=== PATIENT | female | born 1990 | race Two or more races ===

== ENCOUNTER 2019-10-29 05:06 | Day surgery (SDC) | payer BC, OTHER ==
[2019-10-28 15:05] VITALS: BMI 34.0
[~2019-10-29 05:06] MED LIST: BUPIVACAINE HCL/PF 0.5% (5MG/ML) 10 ML VIAL IJ ONE; ceFAZolin SODIUM 1 GM VIAL IVPB ONE
[2019-10-29] MEDS ORDERED: IBUPROFEN 800 MG/8 ML IJ IVPB PRN (11:39)
--- NOTE | 2019-10-29 11:39 | HP ---
History & Physical Update - History History: No Change - Physical Physical: No Change - Assessment Assessment: No Change - Plan Plan: No Change (NO change in HP)
[2019-10-29] MEDS ORDERED: ceFAZolin SODIUM 1 GM VIAL IVPB ONE (12:15)
[2019-10-29] MEDS ORDERED: ROCURONIUM BROMIDE 50 MG/5 ML SYRINGE ONE (12:35)
[2019-10-29] MEDS ORDERED: MIDAZOLAM HCL 2 MG/2 ML SINGLE DOSE VIAL ONE ×2 (12:35→12:36)
[2019-10-29] MEDS ORDERED: PROPOFOL 20 ML ONE (12:35)
[2019-10-29] MEDS ORDERED: KETOROLAC TROMETHAMINE 30 MG/1 ML VIAL ONE (13:24)
[2019-10-29] MEDS ORDERED: DEXAMETHASONE SOD PHOSPHATE 4 MG/1 ML VIAL ONE (13:24)
[2019-10-29] MEDS ORDERED: GLYCOPYRROLATE 0.2 MG/1 ML VIAL ONE (13:24)
[2019-10-29] MEDS ORDERED: NEOSTIGMINE METHYLSULFATE 0.5 MG/ML - 10 ML MDV ONE ×2 (13:24→14:31)
[2019-10-29] MEDS ORDERED: DESFLURANE GAS 240 ML BOTTLE IH ONE (13:51)
[2019-10-29] MEDS ORDERED: oxyCODONE HCL 5 MG TABLET PO PRN ×2 (14:19)
[2019-10-29] MEDS ORDERED: ONDANSETRON 4 MG/2 ML VIAL IVPUSH PRN (14:19)
[2019-10-29] MEDS ORDERED: LACTATED RINGERS SOLUTION 1,000 ML IV SCH (14:30)
--- NOTE | 2019-10-29 15:22 | SURG ---
Surgery Trim Technician Note Trim Technician: Chang Green PA-C (Suzy) Date of Service: 10/29/19 Diagnosis: Endometrioma, endometriosis Procedure: Laparoscopic right ovarian cystectomy, left ovarian cystectomy I was present for the entirety of the operative procedure. For further detail, please refer to operative report. Visit type - Case Type Case Type: Scheduled - Emergency Emergency Visit: No - New patient This patient is new to me today: Yes Date on this admission: 10/30/19 - Critical Care Critical Care patient: No
--- NOTE | 2019-10-29 15:27 | OP ---
Operative Note - Note: Operative Date: 10/29/19 Pre-Operative Diagnosis: Endometrioma, endometriosis Operation: Laparoscopic right ovarian cystectomy, left ovarian cystectomy Findings: as dictated Post-Operative Diagnosis: Same as Pre-op Surgeon: Lisa Herron Convex Grinder: Chang Green Anesthesiologist/PRODUCTION UTILITY WORKER: Jonathan Brown Anesthesia: General Specimens Removed: left ovarian cyst, right ovarian cyst Estimated Blood Loss (mls): 35 (ml) Drains, Volume Out (mls): 100 (ml yellow urine) Fluid Volume Replaced (mls): 1,300 (ml LR) Operative Report Dictated: Yes
[2019-10-29] MEDS ORDERED: ALBUTEROL SO4 0.083% IH SOL 2.5 MG/3 ML VIAL.NEB. NEB ONE ×3 (16:09→16:22)
[2019-10-29] MEDS ORDERED: BUPIVACAINE HCL/PF 0.5% (5MG/ML) 10 ML VIAL IJ ONE (16:15)
[2019-10-29] MEDS ORDERED: ONDANSETRON 4 MG/2 ML VIAL ONE ×2 (16:21→18:02)
[2019-10-29] MEDS ORDERED: ACETAMINOPHEN 1000 MG/100 ML VIAL (NON FORMULARY) IVPB ONE (16:22)
[2019-10-29 18:54] VITALS: BP 111/60; PULSE 61
[2019-10-29 19:25] VITALS: TEMP 97.8
--- NOTE | 2019-11-02 16:26 | PATH ---
Surgical Pathology Report Patient Name: MANJULA RICKETTS [facility]. Rec. #: [id number] /Age/Gender: 1990 (Age: 29) / F Account: [id number] Location: [facility] SURGICAL Taken: 10/29/2019 Received: 10/30/2019 Reported: 11/02/2019 Physicians: Lisa Herron M.D. Specimen(s) Received A: RIGHT OVARIAN CYST B: LEFT OVARIAN CYST Clinical History Endometriosis, left and right ovarian cyst Final Diagnosis A. OVARIAN CYST, RIGHT, CYSTECTOMY: CONSISTENT WITH ENDOMETRIOTIC CYST. B. OVARIAN CYST, LEFT, CYSTECTOMY: CONSISTENT WITH HEMORRHAGIC CORPUS LUTEUM CYST Electronically Signed Doreen West M.D. Gross Description A. Received in formalin labeled "right ovarian cyst," is a 5.0 x 3.8 x 0.6 cm aggregate of multiple fontenot figueroa to brown soft tissue fragments, possibly consistent with a disrupted cyst. Telecom Analyst sections are submitted in 4 cassettes. B. Received in formalin labeled "left ovarian cyst," is a 1.6 x 1.2 x 0.2 cm aggregate of fontenot brown soft tissue fragments. The specimen is entirely submitted in one cassette. 10/30/2019 saudi10/30/2019
--- NOTE | 2019-11-06 19:00 | OP ---
DATE OF OPERATION: 10/29/2019 PREOPERATIVE DIAGNOSES: 1. Endometrioma. 2. Endometrium. 3. Right ovarian cyst. OPERATION: Laparoscopic right ovarian cystectomy and a left ovarian cystectomy. SURGEON: Elliott Herron MD RAIL EXPRESS CLERK: CORY Camacho ANESTHESIOLOGIST: ANESTHESIA: General. SPECIMEN REMOVED: Left ovarian cyst and right ovarian cyst. PROCEDURE: Patient was taken to the operating room, placed in a dorsal lithotomy position. Prepped and draped in the usual sterile fashion. Time-out was performed in accordance with hospital regulation. Lozada catheter was inserted into the bladder. Attention was then drawn to the umbilicus where a 5-mm umbilical incision was made. Veress needle was inserted into the cavity. Approximately 3-4 L of CO2 was insufflated in the cavity. Veress needle was then removed, and a 5-mm trocar was then inserted. Visualization revealed a right ovary, which was severely adherent to the uterus as well as the sidewall and noted to have endometriomas. Approximately 2-3 cysts were noted in the right ovary. Left ovary also had a clear cyst. The [place] was then inserted as well as Endo Carrie. Endo Carrie were used to open the right cyst. Chocolate material was seen coming out of the right cyst. Endometrioma was noted, and pulling and tugging of the ovarian cysts, and 3 different cysts of the right ovary were then removed. Specimen was then submitted to Pathology. Cautery of the ovary was then done. Lysis of adhesions had to be done. The bowel was adherent to the ovary, and anterior lysis was performed as well as lysis of adhesions on the right side. Attention was then drawn to the left side where a left ovarian cyst was noted. Cautery of the endometrial cyst was done, and cyst wall was then removed and submitted to Pathology. Cautery of the ovary was done, and hemostasis was achieved. Irrigation was then done, suction. Estimated blood loss was 35 mL. All instruments were then removed. was removed from the abdomen. Incisions were then closed using 4-0 Biosyn suture in subcuticular fashion. Wound was washed and dressed. Patient tolerated the procedure well. Estimated blood loss, again, was 35 mL. ELLIOTT HERRON M.D. [id number]
== END 2019-10-29 19:10 | disposition home or self-care (01) ==
LOC: JASU-SURG 05:06
PROVIDERS: ATTEND Obstetrics & Gynecology
PROC: 0UB24ZZ Excision of Bilateral Ovaries, Percutaneous Endoscopic Approach (ICD-10-PCS; principal; 2019-10-29 10:00)
DX: N80.1 Endometriosis of ovary (principal); N83.292 Other ovarian cyst, left side; N83.291 Other ovarian cyst, right side
CPT/HCPCS: 84703; 88305-TC; 94760